=== PATIENT | female | born 1985 | race African-American/Black ===

== ENCOUNTER 2017-05-13 09:29 | Emergency (ER) | payer MEDICAID ==
[2017-05-13 09:37] VITALS: BP 113/73
[2017-05-13 10:25] LABS: APPEARANCE,URINE CLEAR; BILIRUBIN,URINE NEGATIVE (NEGATIVE); GLUCOSE, URINE NEGATIVE (NEGATIVE); KETONES,URINE NEGATIVE (NEGATIVE); LEUKOCYTE ESTERASE,URINE NEGATIVE (NEGATIVE); NITRITE,URINE NEGATIVE (NEGATIVE); PROTEIN,URINE NEGATIVE (NEGATIVE); URINE SPECIFIC GRAVITY 1.031; UROBILINOGEN,URINE NEGATIVE mg/dL (<2.0)
--- NOTE | 2017-05-13 10:45 | ER Document Report ---
HPI - HPI Patient complains to provider of: dysuria Onset: Yesterday Onset/Duration: Gradual Quality of pain: Burning Severity: Mild Pain Level: 1 Context: Patient states that she has had increased urination since yesterday and reports burning with urination. Denies fever, does have some nausea but patient is about 7 weeks . No vomiting. No abdominal pain. Associated Symptoms: None Exacerbated by: Denies Relieved by: Denies Similar symptoms previously: Yes Recently seen / treated by doctor: No - ROS ROS below otherwise negative: Yes Systems Reviewed and Negative: Yes All other systems reviewed and negative - CONSTITUTIONAL Constitutional: DENIES: Fever - EENT EENT: DENIES: Congestion - NEURO Neurology: DENIES: Headache - CARDIOVASCULAR Cardiovascular: DENIES: Chest pain - RESPIRATORY Respiratory: DENIES: Trouble Breathing - GASTROINTESTINAL Gastrointestinal: REPORTS: Nausea. DENIES: Abdominal Pain - URINARY Urinary: REPORTS: Dysuria - REPRODUCTIVE Reproductive: REPORTS: : - MUSCULOSKELETAL Musculoskeletal: DENIES: Extremity pain - DERM Skin Color: Normal Skin Problems: None Past Medical History - General Information source: Patient - Social History Smoking Status: Never Smoker Frequency of alcohol use: None Drug Abuse: None Lives with: Spouse/Significant other Family History: Reviewed & Not Pertinent Patient has suicidal ideation: No Patient has homicidal ideation: No - Medical History Medical History: Negative Past Surgical History: Reports: Hx Oral Surgery - wisdom teeth extraction - Immunizations Hx Diphtheria, Pertussis, Tetanus Vaccination: Yes - unknown Vertical Provider Document - CONSTITUTIONAL Agree With Documented VS: Yes Exam Limitations: No Limitations General Appearance: WD/WN, No Apparent Distress - INFECTION CONTROL TRAVEL OUTSIDE OF THE [place] IN LAST 30 DAYS: No - HEENT HEENT: Atraumatic, Normocephalic - RESPIRATORY Respiratory: Breath Sounds Normal, No Respiratory Distress O2 Sat by Pulse Oximetry: 98 - CARDIOVASCULAR Cardiovascular: Regular Rate, Regular Rhythm - GI/ABDOMEN Gastrointestinal: Abdomen Soft, Normal Bowel Sounds Notes: mild suprapubic tenderness - BACK Back: negative: CVA Tenderness-Right, CVA Tenderness-Left - MUSCULOSKELETAL/EXTREMETIES Musculoskeletal/Extremeties: MAEW - NEURO Level of Consciousness: Awake, Alert, Appropriate - DERM Integumentary: Warm, Dry Course - Vital Signs Vital signs: Temp Pulse Resp BP Pulse Ox 98.4 F 86 14 113/73 98 05/13/17 09:35 05/13/17 09:35 05/13/17 09:35 05/13/17 09:35 05/13/17 09:35 Discharge - Discharge Clinical Impression: Dysuria Condition: Good Disposition: HOME, SELF-CARE Additional Instructions: Push fluids Antibiotic as prescribed for 3 days pending urine culture results Follow-up with your STEWARD RACETRACK as scheduled Return as needed Prescriptions: Nitrofurantoin Monohyd/M-Cryst [Macrobid 100 mg Capsule] 100 mg PO BID #6 capsule Forms: Return to Work
== END 2017-05-13 10:51 | disposition home or self-care (01) ==
LOC: ER 09:29
DX: R30.0 Dysuria (principal); Z3A.01 Less than 8 weeks gestation of pregnancy; R11.0 Nausea
CPT/HCPCS: 81001; 87086; 99283

== ENCOUNTER 2017-10-17 20:31 | Emergency (ER) | payer MEDICAID ==
--- NOTE | 2017-10-17 21:26 | ER Document Report ---
ED General - General Chief Complaint: Chest Tightness Stated Complaint: CHEST TIGHTNESS Time Seen by Provider: 10/17/17 21:09 Notes: Patient is a 32-year-old female currently 30 weeks , no prior past medical history who presents with 24 hours of intermittent chest tightness and shortness of breath as well as a headache. Patient reports that since waking up this morning she is intermittently felt a heaviness in her chest with some mild difficulty catching her breath. She denies any pleuritic pain, exertional dyspnea, orthopnea, or hemoptysis. No unilateral leg swelling. She denies any history of prior DVT or pulmonary embolus. She denies any symptoms at time of my assessment. She has not seen her primary care doctor or ACCESSORIES REPAIRER regarding today's concerns. Nothing improves or worsens her symptoms. TRAVEL OUTSIDE OF THE [place] IN LAST 30 DAYS: No - Related Data Allergies/Adverse Reactions: codeine [Codeine] Adverse Reaction (Intermediate, Verified 05/13/17 09:34) Hallucinations hydrocodone [Hydrocodone] Adverse Reaction (Verified 05/13/17 09:34) Hallucinations Past Medical History - General Information source: Patient - Social History Smoking Status: Never Smoker Frequency of alcohol use: None Drug Abuse: None Lives with: Family Family History: Reviewed & Not Pertinent Renal/ Medical History: Denies: Hx Peritoneal Dialysis Past Surgical History: Reports: Hx Oral Surgery - wisdom teeth extraction - Immunizations Hx Diphtheria, Pertussis, Tetanus Vaccination: Yes - unknown Review of Systems - Review of Systems Notes: Constitutional: Negative for fever. HENT: Negative for sore throat. Eyes: Negative for visual changes. Cardiovascular: Positive for chest pain. Respiratory: Positive for shortness of breath. Gastrointestinal: Negative for abdominal pain, vomiting or diarrhea. Genitourinary: Negative for dysuria. Musculoskeletal: Negative for back pain. Skin: Negative for rash. Neurological: Negative for headaches, weakness or numbness. 10 point ROS negative except as marked above and in HPI. Physical Exam - Vital signs Vitals: Pulse Resp BP Pulse Ox 77 18 122/78 98 10/18/17 00:20 10/18/17 00:20 10/18/17 00:20 10/18/17 00:20 Interpretation: Normal Notes: PHYSICAL EXAMINATION: GENERAL: Well-appearing, well-nourished and in no acute distress. HEAD: Atraumatic, normocephalic. EYES: Pupils equal round and reactive to light, extraocular movements intact, sclera anicteric, conjunctiva are normal. ENT: nares patent, oropharynx clear without exudates. Moist mucous membranes. NECK: Normal range of motion, supple without lymphadenopathy LUNGS: Breath sounds clear to auscultation bilaterally and equal. No wheezes rales or rhonchi. HEART: Regular rate and rhythm without murmurs ABDOMEN: Gravid uterus. Soft, nontender, normoactive bowel sounds. No guarding , no rebound. No masses appreciated. EXTREMITIES: Normal range of motion, no pitting or edema. No cyanosis. NEUROLOGICAL: No focal neurological deficits. Moves all extremities spontaneously and on command. PSYCH: Normal mood, normal affect. SKIN: Warm, Dry, normal turgor, no rashes or lesions noted. Course - Re-evaluation Re-evalutation: 10/17/17 22:29 Patient presents with chest heaviness and some mild shortness of breath that is been present for the past 24 hours in the setting of a third trimester . Patient is well in appearance, vitals within normal limits without tachycardia, tachypnea, or hypoxemia. She denies any pleuritic pain, exertional dyspnea, and denies any significant symptoms at time of assessment. I have discussed with the patient that in the setting of a third trimester although her symptoms are minimally suggestive of a pulmonary embolus cannot definitively exclude this diagnosis without a CT of the chest. I have also discussed that given that she is there are associated risks of a high level of radiation exposure during the CT scan to her fetus as well as to the patient herself. We have had an extensive risks and benefits conversation about proceeding with a CT of the chest versus discharge home with close follow- up and strict return precautions. This conversation was held in front of family members. The patient has elected to defer a CT scan of the chest at this time based on the concerns of possible exposure to radiation as well as to herself. Chest x-ray without evidence of pneumothorax or infiltrate. EKG without ST changes. Troponin is negative. At this time will discharge with return precautions and follow-up recommendations. Verbal discharge instructions given a the bedside and opportunity for questions given. Medication warnings reviewed. Patient is in agreement with this plan and has verbalized understanding of return precautions and the need for primary care follow-up in the next 24-72 hours. - Vital Signs Vital signs: Temp Pulse Resp BP Pulse Ox 77 18 122/78 98 10/18/17 00:20 10/18/17 00:20 10/18/17 00:20 10/18/17 00:20 - Laboratory Result Diagrams: 10/17/17 22:25 10/17/17 22:25 Laboratory results interpreted by me: 10/17/17 10/17/17 22:25 22:25 Hgb 10.6 L Hct 30.6 L MCV 79 L Sodium 136.8 L Creatinine 0.50 L - Diagnostic Test Radiology reviewed: Image reviewed, Reports reviewed Radiology results interpreted by me: 10/18/17 00:02 Chest x-ray: No acute infiltrate or pneumothorax - EKG Interpretation by Me Additional EKG results interpreted by me: 10/18/17 00:03 Normal sinus rhythm. Rate 82. No ST elevations or depressions. QTC is 439. Discharge - Discharge Clinical Impression: Chest discomfort, Shortness of breath Condition: Good Disposition: HOME, SELF-CARE Additional Instructions: Please return if you develop increasing shortness of breath, worsening pain, pass out, or have any other symptoms that are worrisome to you. Begin taking famotidine also known as Pepcid 20 mg twice daily to see if this improves your symptoms. Referrals: ELGIN CRUZ MD [Primary Care Provider] - Follow up as needed
--- NOTE | 2017-10-17 22:43 | RADIOLOGY REPORT (SQ) ---
EXAM DESCRIPTION: CHEST SINGLE VIEW COMPLETED DATE/TIME: 10/17/2017 10:09 pm REASON FOR STUDY: sob COMPARISON: 07/03/2012 EXAM PARAMETERS: NUMBER OF VIEWS: One view. TECHNIQUE: Single frontal radiographic view of the chest acquired. RADIATION DOSE: NA LIMITATIONS: None. FINDINGS: LUNGS AND PLEURA: No acute opacities, masses or pneumothorax. No pleural effusion. MEDIASTINUM AND HILAR STRUCTURES: No masses. Contour normal. HEART AND VASCULAR STRUCTURES: Heart normal in size. Normal vasculature. BONES: No acute findings. HARDWARE: None in the chest. OTHER: No other significant finding. IMPRESSION: NO ACUTE RADIOGRAPHIC FINDING IN THE CHEST. TECHNICAL DOCUMENTATION: JOB ID: [id number] [place]-72 2010 [employer]- All Rights Reserved
[2017-10-17 22:46] LABS: ABSOLUTE BASOPHILS # (AUTO) 0.1 10^3/uL (0.0-0.2); ABSOLUTE EOSINOPHILS # (AUTO) 0.2 10^3/uL (0.0-0.6); ABSOLUTE LYMPHOCYTES (AUTO) 2.4 10^3/uL (0.5-4.7); ABSOLUTE MONOCYTES (AUTO) 0.7 10^3/uL (0.1-1.4); ABSOLUTE NEUT (AUTO) 5.3 10^3/uL (1.7-8.2); BASOPHILS % (AUTO) 0.6 % (0-2); EOSINOPHILS % (AUTO) 1.8 % (0-6); HEMATOCRIT 30.6 % (36.0-47.0); HEMOGLOBIN 10.6 g/dL (12.0-15.5); LYMPHOCYTES % (AUTO) 27.9 % (13-45); MEAN CORPUSCULAR HEMOGLOBIN 27.3 pg (27.0-33.4); MEAN CORPUSCULAR HGB CONC 34.7 g/dL (32.0-36.0); MEAN CORPUSCULAR VOLUME 79 fl (80-97); MONOCYTES % (AUTO) 8.4 % (3-13); PLATELET COUNT 201 10^3/uL (150-450); RED BLOOD COUNT 3.89 10^6/uL (3.72-5.28); RED CELL DISTRIBUTION WIDTH 13.9 % (11.5-14.0); SEGMENTED NEUTROPHILS % (AUTO) 61.3 % (42-78); TOTAL CELLS COUNTED % (AUTO) 100 %; WHITE BLOOD COUNT 8.7 10^3/uL (4.0-10.5)
[2017-10-17 23:02] LABS: ANION GAP 9 (5-19); BLOOD UREA NITROGEN 11 mg/dL (7-20); CARBON DIOXIDE 22 mmol/L (22-30); CHLORIDE 106 mmol/L (98-107); GLUCOSE 86 mg/dL (75-110); POTASSIUM 4.1 mmol/L (3.6-5.0); SODIUM 136.8 mmol/L (137-145)
[2017-10-18] MEDS ORDERED: FAMOTIDINE 20 MG TABLET PO ONE (00:02)
[2017-10-18 00:21] VITALS: BP 122/78
--- NOTE | 2017-10-19 11:06 | EKG REPORT ---
SEVERITY:- NORMAL ECG - SINUS RHYTHM : Confirmed by: Rosalee Kim MD 19-Oct-2017 11:06:10
== END 2017-10-18 00:21 | disposition home or self-care (01) ==
LOC: ER 20:31
DX: O26.893 Other specified pregnancy related conditions, third trimester (principal); R07.89 Other chest pain; R06.02 Shortness of breath; R51 Headache; Z3A.30 30 weeks gestation of pregnancy
CPT/HCPCS: 93005; 99285; 36415; 85025; 80048; 84484; 71010; 93010; J3490

== ENCOUNTER 2017-12-10 13:02 | Outpatient (CLI) | payer MEDICAID ==
[2017-12-10 13:46] LABS: AMNISURE (ROM) NEGATIVE (NEGATIVE)
[2017-12-10 13:50] LABS: APPEARANCE,URINE CLOUDY; BILIRUBIN,URINE NEGATIVE (NEGATIVE); COLOR,URINE AMBER; GLUCOSE, URINE NEGATIVE (NEGATIVE); KETONES,URINE NEGATIVE (NEGATIVE); LEUKOCYTE ESTERASE,URINE TRACE (NEGATIVE); NITRITE,URINE NEGATIVE (NEGATIVE); PROTEIN,URINE 30 mg/dL (NEGATIVE); URINE SPECIFIC GRAVITY 1.035
[2017-12-10 14:14] LABS: URINE AMPHETAMINES SCREEN NEGATIVE; URINE BARBITURATES SCREEN NEGATIVE; URINE BENZODIAZEPINES SCREEN NEGATIVE; URINE COCAINE SCREEN NEGATIVE; URINE MARIJUANA (THC) SCREEN NEGATIVE; URINE METHADONE SCREEN NEGATIVE; URINE PHENCYCLIDINE SCREEN NEGATIVE
--- NOTE | 2017-12-10 14:38 | Non Stress Test Report ---
Non Stress Test Datetime Report Generated by CPN: 12/10/2017 14:38 DEMOGRAPHIC EGA NST: 37.4 INDICATION Indication for Study: Other Indication for Study (NST) Other: LABOR CHECK MONITORING Monitor Explained: Monitor Explained; Test Explained; Patient Verbalized Understanding Time on Monitor: 12/10/2017 13:26 NST INTERVENTIONS NST Interventions: PO Hydration; Reposition Patient Physician Notified NST: A. Samuels, CNM BABY A: [id number] BABY A Movement : Present Contraction Frequency : Irregular FHR Baseline : 145 Accelerations : 15X15 Decelerations : None Variability : Moderate 6-25bpm NST Review: Meets Criteria for Reactive NST NST Review and Verified By : Yassine Armenta RN NST Results: Reactive NST REPORT Report Trigger: Send Report
== END 2017-12-10 14:28 | disposition home or self-care (01) ==
LOC: LC 13:02
PROVIDERS: ATTEND Obstetrics & Gynecology
PROC: 4A1HXCZ Monitoring of Products of Conception, Cardiac Rate, External Approach (ICD-10-PCS; principal; 2017-12-10)
DX: Z34.93 Encounter for supervision of normal pregnancy, unspecified, third trimester (principal)
CPT/HCPCS: 59025; 80307; 81005; 84112

== ENCOUNTER 2018-01-07 13:47 | Outpatient (CLI) | payer MEDICAID ==
[2018-01-07 14:22] LABS: APPEARANCE,URINE CLOUDY; BILIRUBIN,URINE NEGATIVE (NEGATIVE); COLOR,URINE YELLOW; GLUCOSE, URINE NEGATIVE (NEGATIVE); KETONES,URINE 20 mg/dL (NEGATIVE); LEUKOCYTE ESTERASE,URINE TRACE (NEGATIVE); NITRITE,URINE NEGATIVE (NEGATIVE); PROTEIN,URINE 30 mg/dL (NEGATIVE); URINE SPECIFIC GRAVITY 1.019; UROBILINOGEN,URINE NEGATIVE mg/dL (<2.0)
[2018-01-07 14:29] LABS: AMNISURE (ROM) NEGATIVE (NEGATIVE)
--- NOTE | 2018-01-07 14:51 | Non Stress Test Report ---
Non Stress Test Datetime Report Generated by CPN: 01/07/2018 14:51 DEMOGRAPHIC EGA NST: 41.4 INDICATION Indication for Study: Ordered by Provider MONITORING Monitor Explained: Monitor Explained; Test Explained; Patient Verbalized Understanding Time on Monitor: 01/07/2018 13:59 Time off Monitor: 01/07/2018 14:46 NST Duration: 47 NST INTERVENTIONS NST Interventions: PO Hydration Physician Notified NST: PMyah Cowart, CNM BABY A: [id number] BABY A Movement : Present Contraction Frequency : Irregular FHR Baseline : 130 Accelerations : 15X15 Decelerations : None Variability : Moderate 6-25bpm NST Review: Meets Criteria for Reactive NST NST Review and Verified By : BIBI Roque Results: Reactive NST REPORT Report Trigger: Send Report
[2018-01-07 14:56] LABS: URINE AMPHETAMINES SCREEN NEGATIVE; URINE BARBITURATES SCREEN NEGATIVE; URINE BENZODIAZEPINES SCREEN NEGATIVE; URINE COCAINE SCREEN NEGATIVE; URINE MARIJUANA (THC) SCREEN NEGATIVE; URINE METHADONE SCREEN NEGATIVE; URINE PHENCYCLIDINE SCREEN NEGATIVE
== END 2018-01-07 13:58 | disposition home or self-care (01) ==
LOC: LC 13:47
PROVIDERS: ATTEND Obstetrics & Gynecology Gynecology
PROC: 4A1HXCZ Monitoring of Products of Conception, Cardiac Rate, External Approach (ICD-10-PCS; principal; 2018-01-07)
DX: O47.1 False labor at or after 37 completed weeks of gestation (principal); Z3A.41 41 weeks gestation of pregnancy
CPT/HCPCS: 59025; 80307; 81005; 84112

== ENCOUNTER 2018-01-08 12:45 | Inpatient (IN) | payer MEDICAID ==
[2018-01-08 13:18] LABS: APPEARANCE,URINE SLIGHTLY-CLOUDY; BILIRUBIN,URINE NEGATIVE (NEGATIVE); COLOR,URINE YELLOW; GLUCOSE, URINE NEGATIVE (NEGATIVE); KETONES,URINE NEGATIVE (NEGATIVE); LEUKOCYTE ESTERASE,URINE MODERATE (NEGATIVE); NITRITE,URINE NEGATIVE (NEGATIVE); PROTEIN,URINE NEGATIVE (NEGATIVE); URINE SPECIFIC GRAVITY 1.015; UROBILINOGEN,URINE NEGATIVE mg/dL (<2.0)
[2018-01-08 13:36] LABS: URINE AMPHETAMINES SCREEN NEGATIVE; URINE BARBITURATES SCREEN NEGATIVE; URINE BENZODIAZEPINES SCREEN NEGATIVE; URINE COCAINE SCREEN NEGATIVE; URINE MARIJUANA (THC) SCREEN NEGATIVE; URINE METHADONE SCREEN NEGATIVE; URINE PHENCYCLIDINE SCREEN NEGATIVE
[2018-01-08] MEDS ORDERED: OXYTOCIN/NORMAL SALINE 20 UNIT/1,000 ML RTUINJ IV PRN ×2 (15:03→21:56)
[2018-01-08] MEDS ORDERED: RINGERS SOLUTION,LACTATED 300 ML IV ONE (15:03)
[2018-01-08] MEDS ORDERED: RINGERS SOLUTION,LACTATED 1,000 ML IV PRN (15:03)
--- NOTE | 2018-01-08 15:36 | Admission Physical ---
Datetime Report Generated by CPN: 01/08/2018 15:35 CURRENT ADMISSION Chief Complaint: Sent from OB Office for Evaluation and Treatment - Please Specify Indication for Induction: Post Dates Admit Impression : Term, Intrauterine Admit Plan: Initiate Labor Induction Protocol ALLERGIES Medication Allergies: Yes Medication Allergies: codeine/MO/Hallucinations (01/07/2018); hydrocodone/Hallucinations (01/07/2018) Latex: No Latex Allergies OBSTETRICAL HISTORY EDC: 12/27/2017 00:00 : 2 Para: 1 Term: 1 : 0 SAB: 0 IAB: 0 Ectopic: 0 Livin Cesareans: 0 VBACs: 0 Multiple Births: 0 Gestational Diabetes: No Rh Sensitization: No Incompetent Cervix: No BRODERICK: No Infertility: No ART Treatment: No Uterine Anomaly: No IUGR: No Hx Previous C/S: No Macrosomia: No Hx Loss/Stillborn: No PIH: No Hx : No Placenta Previa/Abruption: No Depression/PP Depression: No PTL/PROM: No Post Hemorrhage: No Current Procedures: Ultrasound; NST Obstetrical History Comments: G1- Baby girl @ 40 weeks G2- Current SEE RECORDS Alcohol: No Marijuana : No Cocaine: No Other Illicit Drugs: No Cigarettes: Never Smoker. [id number] MEDICAL HISTORY Diabetes: No Blood Transfusion: No Pulmonary Disease (Asthma, TB): No Breast Disease: No Hypertension: No Teacher Early Childhood Development Surgery: No Heart Disease: No Hosp/Surgery: Yes Autoimmune Disorder: No Anesthetic Complications: No Kidney Disease: No Abnormal Pap Smear: No Neuro/Epilepsy: No Psychiatric Disorders: No Other Medical Diseases: No Hepatitis/Liver Disease: No Significant Family History: No Varicosities/Phlebitis: No Trauma/Violence : No Thyroid Dysfunction: No Medical History Comments: Childbirth, wisdom teeth 2002, hosp 2013 for adnoid infection INFECTIOUS HISTORY Gonorrhea: No Genital Herpes: No Chlamydia: No Tuberculosis: No Syphilis: No Hepatitis: No HIV/AIDS Exposure: No Rash or Viral Illness: No HPV: No PHYSICAL EXAM General: Normal HEENT: Normal Neurologic: Normal Thyroid: Deferred Heart: Normal Lungs: Normal Breast: Deferred Back: Deferred Abdomen: Normal Genitourinary Exam: Deferred Extremities: Normal DTRs: Deferred Pelvic Type: Not Done Physical Exam Comments: pelvis proven to 7#4.9oz Vital Signs: Reviewed; Within Normal Limits VAGINAL EXAM Dilatation: 3 Effacement: 60 Station: -2 Contraction Comments: irreg MEMBRANES Membranes: Intact FETUS A EGA: 41.5 Monitoring: External US FHR- Baseline: 125 Variability: Moderate 6-25bpm Accelerations: 15X15 Decelerations: None FHR Category: Category I Estimated Weight (gm): 3400 Presentation: Vertex Admit Comment: at 41w5d by LMP c/w 11w sono. admitted for IOL for postdates . Plan is pitocin IOL, anticipate . PLANS FOR LABOR AND DELIVERY Labor and Delivery: None Pain Management: None Feeding Preference: Breast Benefit of Breast Feed Discussed: Yes Circumcision: N/A INFORMED CONSENT Assignment: Cari Gonzalez MD Signature: with User ID: [email or web address] : with User ID: [email or web address]
[2018-01-08] MEDS ORDERED: OXYTOCIN/NORMAL SALINE 20 UNIT/1,000 ML RTUINJ ONE (15:41)
[2018-01-08 16:02] LABS: ABSOLUTE BASOPHILS # (AUTO) 0.1 10^3/uL (0.0-0.2); ABSOLUTE EOSINOPHILS # (AUTO) 0.1 10^3/uL (0.0-0.6); ABSOLUTE MONOCYTES (AUTO) 0.9 10^3/uL (0.1-1.4); ABSOLUTE NEUT (AUTO) 8.6 10^3/uL (1.7-8.2); BASOPHILS % (AUTO) 0.6 % (0-2); EOSINOPHILS % (AUTO) 0.5 % (0-6); HEMATOCRIT 37.8 % (36.0-47.0); HEMOGLOBIN 12.6 g/dL (12.0-15.5); LYMPHOCYTES % (AUTO) 17.1 % (13-45); MEAN CORPUSCULAR HEMOGLOBIN 26.5 pg (27.0-33.4); MEAN CORPUSCULAR HGB CONC 33.4 g/dL (32.0-36.0); MEAN CORPUSCULAR VOLUME 79 fl (80-97); MONOCYTES % (AUTO) 7.5 % (3-13); PLATELET COUNT 161 10^3/uL (150-450); RED BLOOD COUNT 4.77 10^6/uL (3.72-5.28); RED CELL DISTRIBUTION WIDTH 14.2 % (11.5-14.0); SEGMENTED NEUTROPHILS % (AUTO) 74.3 % (42-78); TOTAL CELLS COUNTED % (AUTO) 100 %; WHITE BLOOD COUNT 11.6 10^3/uL (4.0-10.5)
--- NOTE | 2018-01-08 16:39 | L&D Progress Notes ---
PROGRESS NOTES Datetime Report Generated by CPN: 01/08/2018 16:39 PROGRESS NOTE Impression: Normal Progression of Labor Procedures: Sterile Vag Exam Plan: Continue Present Management; Induction; Cervical Ripening Informed Consent Obtained: Vaginal Delivery; Risks, Benefits and Alternatives Discussed Vital Signs : Reviewed Comment: cvx 2-3cm. Cooks catheter due to thickened cvx. Pitocin initiated for induction. VAGINAL EXAM Dilatation: 3 Effacement: 60 Station: -2 Contractions: irreg MEMBRANES Membranes: Intact FETUS A FHR - Baseline: 125 Variability: Moderate 6-25bpm Accelerations: 15X15 Decelerations: None FHR Category: Category I : 41+5 Estimated Weight (gm): 3400 Presentation: Vertex SIGNATURE SIGNATURE: [id number] SIGNATURE: ,[id number];,[id number] SIGNATURE: [id number] SIGNATURE: ,[id number] Signature: with User ID: [email or web address]
--- NOTE | 2018-01-08 18:07 | L&D Progress Notes ---
PROGRESS NOTES Datetime Report Generated by CPN: 01/08/2018 18:06 PROGRESS NOTE Impression: Normal Progression of Labor Procedures: Artificial ROM; Sterile Vag Exam Plan: Continue Present Management; Induction; Cervical Ripening Informed Consent Obtained: Vaginal Delivery; Induction of Labor; Risks, Benefits and Alternatives Discussed Comment: Pt with increased pain with contractions. Cooks in vagina. Cvx /-1. AROM attempted - scant fluid noted. Anticpate VAGINAL EXAM Dilatation: 7 Effacement: 80 Station: -1 Contractions: q 2 FETUS A FHR - Baseline: 140 Monitoring: External US Variability: Moderate 6-25bpm Accelerations: 15X15 Decelerations: None FHR Category: Category I FETUS C SIGNATURE: 13,[id number];14,[id number];10,[id number] Signature: with User ID: [email or web address]
[2018-01-08] MEDS ORDERED: ONDANSETRON HCL INJ/PF 4 MG/2 ML SDV IV PRN (18:08)
[2018-01-08] MEDS ORDERED: ONDANSETRON HCL INJ/PF 4 MG/2 ML SDV ONE (18:11)
[2018-01-08] MEDS ORDERED: MISOPROSTOL 0.2 MG TABLET ONE (18:19)
[2018-01-08] MEDS ORDERED: LIDOCAINE 1% INJ-PF (10 MG/ML) 30 ML SDV ONE (18:20)
[2018-01-08] MEDS ORDERED: FENTANYL CITRATE INJ/PF 100 MCG/2 ML AMPUL IV ONE (18:44)
[2018-01-08] MEDS ORDERED: FENTANYL CITRATE INJ/PF 100 MCG/2 ML AMPUL ONE (18:45)
[2018-01-08] MEDS ORDERED: MEASLES,MUMPS&RUBELLA VACC/PF 0.5 ML VIAL SUBCUT PRN (21:56)
[2018-01-08] MEDS ORDERED: NA PHOS,M-B/NA PHOS,DI-BA (ADULT) 133 ML ENEMA PR PRN (21:56)
[2018-01-08] MEDS ORDERED: ACETAMINOPHEN 325 MG TABLET PO PRN (21:56)
[2018-01-08] MEDS ORDERED: DIPHENHYDRAMINE HCL 25 MG CAPSULE PO PRN (21:56)
[2018-01-08] MEDS ORDERED: PROMETHAZINE HCL 25 MG TABLET PO PRN (21:56)
[2018-01-08] MEDS ORDERED: DIBUCAINE 1% OINTMENT 28 GM TP PRN (21:56)
[2018-01-08] MEDS ORDERED: PROMETHAZINE HCL 25 MG SUPP.RECT PR PRN (21:56)
[2018-01-08] MEDS ORDERED: ZOLPIDEM TARTRATE 5 MG TABLET PO PRN (21:56)
[2018-01-08] MEDS ORDERED: GLYCERIN/WITCH HAZEL LEAF 1 EACH MED..PAD TP PRN (21:56)
[2018-01-08] MEDS ORDERED: PROMETHAZINE HCL INJ 25 MG/1 ML VIAL IV PRN (21:56)
[2018-01-08] MEDS ORDERED: MAGNESIUM HYDROXIDE SUSP 30 ML UDCUP PO PRN (21:56)
[2018-01-08] MEDS ORDERED: PSEUDOEPHEDRINE HCL 30 MG TABLET PO PRN (21:56)
[2018-01-08] MEDS ORDERED: BENZOCAINE/MENTHOL AEROSOL SPRAY 56 ML TOP PRN (21:56)
[2018-01-08] MEDS ORDERED: DIPH/PERTUSS(ACELL)/TETANUS VAC/PF 0.5 ML SYR (>=10YO) IM PRN (21:56)
[2018-01-09] MEDS: IBUPROFEN 800 MG TABLET PO SCH ×4 (00:38→21:36)
[2018-01-09] MEDS: FAMOTIDINE 20 MG TABLET PO SCH ×3 (02:56→21:38)
[2018-01-09 07:37] LABS: HEMATOCRIT 35.9 % (36.0-47.0); HEMOGLOBIN 12.3 g/dL (12.0-15.5); MEAN CORPUSCULAR HEMOGLOBIN 26.8 pg (27.0-33.4); MEAN CORPUSCULAR HGB CONC 34.1 g/dL (32.0-36.0); MEAN CORPUSCULAR VOLUME 79 fl (80-97); PLATELET COUNT 154 10^3/uL (150-450); RED BLOOD COUNT 4.57 10^6/uL (3.72-5.28); RED CELL DISTRIBUTION WIDTH 14.2 % (11.5-14.0); WHITE BLOOD COUNT 21.5 10^3/uL (4.0-10.5)
[2018-01-09] MEDS: FERROUS SULFATE 325 MG TABLET PO SCH ×2 (11:11→17:27)
[2018-01-09] MEDS: SENNOSIDES/DOCUSATE 8.6-50 MG 1 EACH TABLET PO SCH (11:12)
[2018-01-09] MEDS: PRENATAL VITAMIN W DHA CAPSULE PO SCH (11:12)
[2018-01-09] MEDS: DOCUSATE SODIUM 100 MG CAPSULE PO SCH ×2 (11:13→17:27)
--- NOTE | 2018-01-09 13:20 | PDOC PROGRESS REPORT ---
Subjective-OB Progress Note for:: 01/09/18 Subjective: no complaints Physical Exam (OB) Vital Signs: Temp Pulse Resp BP Pulse Ox 98.3 F 76 18 103/69 100 01/09/18 07:47 01/09/18 07:47 01/09/18 07:47 01/09/18 07:47 01/09/18 07:47 Intake & Output 01/08/18 01/09/18 01/10/18 06:59 06:59 06:59 Weight 69.4 kg - PIH/Pre-Eclampsia DTR's: 2 + Clonus: Negative Headache: Absent Epigastric Pain: No Visual Changes: No - Lochia Lochia Amount: Scant < 10 ml Lochia Color: Rubra/Red - Abdomen Description: Soft Hernia Present: No Bowel Sounds: Normoactive Flatus Presence: Present Fundal Description: Firm, Midline Fundal Height: u/u - u/2 - Respiratory Breath sounds: Clear - Extremities Calf: Normal Objective-Diagnostic Laboratory: 01/09/18 07:17 01/08/18 01/08/18 01/08/18 12:55 15:40 15:40 WBC 11.6 H RBC 4.77 Hgb 12.6 Hct 37.8 MCV 79 L MCH 26.5 L MCHC 33.4 RDW 14.2 H Plt Count 161 Seg Neutrophils % 74.3 Lymphocytes % 17.1 Monocytes % 7.5 Eosinophils % 0.5 Basophils % 0.6 Absolute Neutrophils 8.6 H Absolute Lymphocytes 2.0 Absolute Monocytes 0.9 Absolute Eosinophils 0.1 Absolute Basophils 0.1 Urine Color YELLOW Urine Appearance SLIGHTLY-CLOUDY Urine pH 7.0 Ur Specific [place] 1.015 Urine Protein NEGATIVE Urine Glucose (UA) NEGATIVE Urine Ketones NEGATIVE Urine Blood MODERATE H Urine Nitrite NEGATIVE Ur Leukocyte Esterase MODERATE H Urine WBC (Auto) 3 Urine RBC (Auto) 0 Blood Type O POSITIVE Antibody Screen NEGATIVE 01/09/18 07:17 WBC 21.5 H RBC 4.57 Hgb 12.3 Hct 35.9 L MCV 79 L MCH 26.8 L MCHC 34.1 RDW 14.2 H Plt Count 154 Seg Neutrophils % Lymphocytes % Monocytes % Eosinophils % Basophils % Absolute Neutrophils Absolute Lymphocytes Absolute Monocytes Absolute Eosinophils Absolute Basophils Urine Color Urine Appearance Urine pH Ur Specific [place] Urine Protein Urine Glucose (UA) Urine Ketones Urine Blood Urine Nitrite Ur Leukocyte Esterase Urine WBC (Auto) Urine RBC (Auto) Blood Type Antibody Screen
[2018-01-10] MEDS: IBUPROFEN 800 MG TABLET PO SCH (05:13)
[2018-01-10 08:42] VITALS: BP 101/58
--- NOTE | 2018-01-10 10:16 | PDOC DISCHARGE SUMMARY ---
Final Diagnosis Discharge Date: 01/10/18 - Final Diagnosis (1) Vaginal delivery Is this a current diagnosis for this admission?: Yes Discharge Data - Discharge Medication Prescriptions: Docusate Sodium [Colace 100 mg Capsule] 100 mg PO BID #60 capsule Ibuprofen [Motrin 800 mg Tablet] 800 mg PO Q8 #60 tablet Home Medications: Vit/Iron Fum/Folic AC [ Tablet] 1 each PO DAILY 12/10/17 Docusate Sodium [Colace 100 mg Capsule] 100 mg PO BID #60 capsule 01/10/18 Ibuprofen [Motrin 800 mg Tablet] 800 mg PO Q8 #60 tablet 01/10/18 Gestational Age: 41 Reason(s) for Admission: Induction of Labor Procedures: NST Intrapartum Procedure(s): Spontaneous Vaginal Delivery - [place] Data Baby 1 Female Home with Mother: Yes Complications: No - Diagnosis Test Laboratory: Temp Pulse Resp BP Pulse Ox 98.2 F 85 17 101/58 L 98 01/10/18 07:49 01/10/18 07:49 01/10/18 07:49 01/10/18 07:49 01/10/18 07:49 01/08/18 01/08/18 01/09/18 12:55 15:40 07:17 RBC 4.77 4.57 Hgb 12.6 12.3 Hct 37.8 35.9 L Urine Opiates Screen NEGATIVE - Discharge information/Instructions Discharge Activity: Activity As Tolerated, Pelvic Rest, No tub bath Discharge Diet: Regular Disposition: HOME, SELF-CARE Follow up with: [facility] in: 4, Weeks
[2018-01-10] MEDS: PRENATAL VITAMIN W DHA CAPSULE PO SCH (10:17)
[2018-01-10] MEDS: SENNOSIDES/DOCUSATE 8.6-50 MG 1 EACH TABLET PO SCH (10:18)
[2018-01-10] MEDS: FERROUS SULFATE 325 MG TABLET PO SCH (10:18)
[2018-01-10] MEDS: DOCUSATE SODIUM 100 MG CAPSULE PO SCH (10:19)
--- NOTE | 2018-01-15 12:19 | Delivery Summary ---
Del Sum A-C Datetime Report Generated by CPN: 01/15/2018 12:18 DELIVERY PERSONNEL DELIVERY PERSONNEL: [id number] Delivery Doctor:: Becky Brooke CNM Nurse Brigadier Certified:: Becky Brooke CNM Labor and Delivery Nurse:: Pilar Ramirez RNtranscribing machine mechanic Nurse:: BIBI Cuello/SELF SEALING FUEL TANK REPAIRER: Sarahi Panda CNA MATERNAL INFORMATION Delivery Anesthesia: None Medications After Delivery: Pitocin Bolus-Please Comment Estimated Blood Loss (ml): 150 Maternal Complications: None Provider Comments: Pt pushed with ctx, head, shoulders, and body delivered without difficulty. with spontaneous cry and respirations to maternal abodmen, cord clamped X2 after 2 min delay, cut free, kept skin to skin, placenta delivered with gentle traction via gallego mechansim, appears intact, 3 VC. Vagina and perineum inspected no lacerations noted, hemostasis acheived with external fundal massage and IV pitocin, mother and infant in stable condition, routine pp care. LABOR SUMMARY EDC: 12/27/2017 00:00 No. Babies in Womb: 1 Attempted: Yes Labor Anesthesia: None LABOR INFORMATION Reason for Induction: Post Dates Onset of Labor: 01/08/2018 14:38 Complete Dilatation: 01/08/2018 21:34 Oxytocin: Induction Group B Beta Strep: 1 NO GROUP B STREPTOCOCCUS RECOVERED Group B Beta Strep: Negative Antibiotics # of Doses: 0 Steroids Given: None Reason Steroids Not Administered: Not Applicable MEMBRANES Membranes Rupture Method: Artificial Rupture of Membranes: 01/08/2018 17:59 Length of Rupture (hr): 3.90 Amniotic Fluid Color: Clear Amniotic Fluid Amount: Scant Amniotic Fluid Odor: Normal STAGES OF LABOR Stage 1 hr: 6 Stage 1 min: 56 Stage 2 hr: 0 Stage 2 min: 19 Stage 3 hr: 0 Stage 3 min: 4 Total Time in Labor hr: 7 Total Time in Labor min: 19 VAGINAL DELIVERY Episiotomy: None Laceration #1: None Laceration Extension #1: N/A Laceration #2: None Laceration #3: None Laceration Repair: Not Applicable Sponge Count Correct: N/A Sharps Count Correct: N/A CSECTION DELIVERY CSection Incision: N/A BABY A INFORMATION Delivery Date/Time: 01/08/2018 21:53 Infant Delivery Date/Time: 01/08/2018 21:53 Method of Delivery: Vaginal Born in Route : No : N/A Forceps: N/A Vacuum Extraction: N/A Shoulder Dystocia : No PRESENTATION/POSITION BABY A Presentation: Cephalic Presentation: Cephalic Presentation: Cephalic Cephalic Presentation: Vertex Breech Presentation: N/A PLACENTA INFORMATION BABY A Placenta Delivery Time : 01/08/2018 21:57 Placenta Method of Delivery: Spontaneous Placenta Status: Delivered SCORES BABY A Heart Rate 1 min: >100 bpm Resp Effort 1 min: Good Cry Reflex Irritability 1 min: Cough or Sneeze or Pulls Away Muscle Tone 1 min: Active Motion Color 1 min: Body [place], Extremities Blue Resuscitation Effort 1 min: Tactile Stimulation SCORE 1 MIN: 9 Heart Rate 5 min: >100 bpm Resp Effort 5 min: Good Cry Reflex Irritability 5 min: Cough or Sneeze or Pulls Away Muscle Tone 5 min: Active Motion Color 5 min: Body [place], Extremities Blue Resuscitation Effort 5 min: Tactile Stimulation SCORE 5 MIN: 9 INFANT INFORMATION BABY A Gestational Age at Delivery: 41.5 Gestational Status: Late Term- 41- 41.6 Weeks Outcome : Liveborn Condition : Stable Infant Sex: Female Infant Sex: Female IDENTIFICATION BABY A Infant Verification Date/Time: 01/08/2018 22:18 ID Band Number: [id number] Mother's Name Verified: Yes RN Verifying : B Montoya, RN Additional Verifying Personnel: D Jailene, US/SELF SEALING FUEL TANK REPAIRER WEIGHT/LENGTH BABY A Infant Birthweight (gm): 3440 Infant Weight (lb): 7 Weight (oz): 9 Infant Length (in): 20.50 Length (cm): 52.07 CORD INFORMATION BABY A No. Cord Vessels: 3 Nuchal Cord : N/A Cord Blood Taken: Yes-For Eval (Mom's Blood Type - or O+) Cord Blood Taken: Yes-For Eval (Mom's Blood Type - or O+) Suction: None ASSESSMENT BABY A Infant Complications: Other Infant Complications- Other: Terminal mec Physical Findings at Delivery: Molding of the Head Respirations: Appears Normal Skin to Skin: Yes Brick Washer/ALS Called : No Infant Care By: MARJ Pinzon Transferred To: Remains with Mother SIGNATURES Assignment: Cari Gonzalez MD Signature: with User ID: [email or web address] : with User ID: [email or web address] : I was personally available for consultation and serving as supervising physician for the MLP.
== END 2018-01-10 13:37 | disposition home or self-care (01) | DRG 775 ==
LOC: LC 12:45 → LR 14:58 → 2S 01-09 00:15 → UNDODISIN 01-10 10:36
PROVIDERS: ADMIT Student in an Organized Health Care Education/Training Program; ATTEND Student in an Organized Health Care Education/Training Program
PROC: 10E0XZZ Delivery of Products of Conception, External Approach (ICD-10-PCS; principal; 2018-01-08)
PROC: 4A1HXCZ Monitoring of Products of Conception, Cardiac Rate, External Approach (ICD-10-PCS; 2018-01-08)
PROC: 0U7C7ZZ Dilation of Cervix, Via Natural or Artificial Opening (ICD-10-PCS; 2018-01-08)
DX: O48.0 Post-term pregnancy (principal); O77.0 Labor and delivery complicated by meconium in amniotic fluid; Z37.0 Single live birth; Z3A.41 41 weeks gestation of pregnancy; Z88.6 Allergy status to analgesic agent
CPT/HCPCS: 36415; 80307; 81001; 85025; 85027; 86592; 86850; 86900; 86901; 87081; J2405; J2590; J3010; J3490

== ENCOUNTER 2018-01-15 20:56 | Emergency (ER) | payer MEDICAID ==
[2018-01-15] MEDS ORDERED: PREDNISONE 20 MG TABLET PO ONE (23:11)
--- NOTE | 2018-01-15 23:20 | ER Document Report ---
HPI - HPI Patient complains to provider of: Skin rash Onset: Last week Onset/Duration: Worse Quality of pain: No pain Pain Level: Denies Context: Patient complains of pruritic skin rash that she noticed developed right after the delivery of her child 1 week ago. Patient states the rash started to the abdomen and has since spread to her extremities and low back area. Patient denies any new foods, medications or detergents. Patient tried topical steroids [id number], topical Benadryl as well as Zyrtec without any improvement of her symptoms. Patient states she took oral Benadryl this evening as well without improvement. Pt states she did see her [employer] provider today for this complaint. Patient states she was advised to take Zyrtec. Associated Symptoms: Other - Skin rash. denies: Fever, Headache Exacerbated by: Denies Relieved by: Denies Similar symptoms previously: No Recently seen / treated by doctor: Yes - ROS ROS below otherwise negative: Yes Systems Reviewed and Negative: Yes All other systems reviewed and negative - CONSTITUTIONAL Constitutional: DENIES: Fever, Chills - NEURO Neurology: DENIES: Headache - REPRODUCTIVE LMP: na - DERM Skin Color: Normal Skin Problems: Rash Past Medical History - General Information source: Patient - Social History Smoking Status: Never Smoker Chew tobacco use (# tins/day): No Frequency of alcohol use: None Drug Abuse: None Occupation: none Lives with: Family Family History: Reviewed & Not Pertinent Patient has suicidal ideation: No Patient has homicidal ideation: No - Medical History Medical History: Negative Renal/ Medical History: Denies: Hx Peritoneal Dialysis Past Surgical History: Reports: Hx Oral Surgery - wisdom teeth extraction - Immunizations Hx Diphtheria, Pertussis, Tetanus Vaccination: Yes - unknown Vertical Provider Document - CONSTITUTIONAL Agree With Documented VS: Yes Exam Limitations: No Limitations General Appearance: WD/WN, No Apparent Distress - INFECTION CONTROL TRAVEL OUTSIDE OF THE [place] IN LAST 30 DAYS: No - HEENT HEENT: Atraumatic, Normal ENT Exam, Normocephalic - NECK Neck: Normal Inspection, Supple. negative: Lymphadenopathy-Left, Lymphadenopathy-Right - RESPIRATORY Respiratory: Breath Sounds Normal, No Respiratory Distress - CARDIOVASCULAR Cardiovascular: Regular Rate, Regular Rhythm, No Murmur - GI/ABDOMEN Gastrointestinal: Abdomen Soft - BACK Back: Normal Inspection - MUSCULOSKELETAL/EXTREMETIES Musculoskeletal/Extremeties: MAEW, FROM - NEURO Level of Consciousness: Awake, Alert, Appropriate Motor/Sensory: No Motor Deficit - DERM Integumentary: Warm, Dry, Rash - Patient with pruritic erythematous papules to abdomen extremities and lower back, patient does have papular lesions within the stria of her abdomen Course - Re-evaluation Re-evalutation: 01/15/18 23:18 Patient presents with symptoms concerning for pupp, discussed treatment options. Patient has attempted to use Benadryl as well as topical steroids without improvement at home. Discussed treatment with oral steroids and timing of breast-feeding to minimize exposure to infant. - Vital Signs Vital signs: Temp Pulse Resp BP Pulse Ox 97.8 F 59 L 16 117/82 96 01/15/18 21:03 01/15/18 21:03 01/15/18 21:03 01/15/18 21:03 01/15/18 21:03 Discharge - Discharge Clinical Impression: PUPP (pruritic urticarial papules and plaques of ) Condition: Stable Disposition: HOME, SELF-CARE Instructions: Steroid Medication Additional Instructions: Return immediately for any new or worsening symptoms Followup with your primary care provider, call tomorrow to make a followup appointment Prescriptions: Prednisone [Deltasone 10 mg Tablet] 10 mg PO ASDIR PRN #21 tablet PRN Reason: Referrals: [facility] [Provider Group] - Follow up as needed
[2018-01-15 23:46] VITALS: BP 121/74
== END 2018-01-15 23:45 | disposition home or self-care (01) ==
LOC: ER 20:56
DX: O26.86 Pruritic urticarial papules and plaques of pregnancy (PUPPP) (principal)
CPT/HCPCS: 99282; J7512

== ENCOUNTER 2018-12-04 22:15 | Emergency (ER) | payer SELFPAY ==
[2018-12-04 22:38] VITALS: BP 119/76
--- NOTE | 2018-12-05 01:10 | ER Document Report ---
HPI - HPI Time Seen by Provider: 12/04/18 23:47 Pain Level: 3 Context: Patient is a 33-year-old female who presents to the emergency department with a chief complaint of a sore throat. Her sore throat started yesterday. Her pain is mainly on the left side of her throat along with some ear pain. She states that she feels that her sore throat t feels the same as when she was hospitalized in 2011. She was seen by an ENT doctor at that time and was admitted at another hospital for adenoiditis and was given IV antibiotics. She states that she does not want to have her symptoms go too far, therefore she presented to the emergency department. She denies any fever, nausea, difficulty breathing, or vomiting. - ROS Systems Reviewed and Negative: Yes All other systems reviewed and negative - CONSTITUTIONAL Constitutional: DENIES: Fever, Chills - EENT EENT: REPORTS: Sore Throat, Ear Pain. DENIES: Nasal Drainage-Clear, Nasal Drainage-Purulent - NEURO Neurology: DENIES: Headache - RESPIRATORY Respiratory: DENIES: Trouble Breathing, Coughing - GASTROINTESTINAL Gastrointestinal: DENIES: Nausea, Patient vomiting - REPRODUCTIVE Reproductive: DENIES: : - DERM Skin Color: Normal, [place] Past Medical History - Social History Smoking Status: Unknown if Ever Smoked Frequency of alcohol use: Rare Drug Abuse: None Family History: Reviewed & Not Pertinent Patient has suicidal ideation: No Patient has homicidal ideation: No Renal/ Medical History: Denies: Hx Peritoneal Dialysis Past Surgical History: Reports: Hx Oral Surgery - wisdom teeth extraction - Immunizations Hx Diphtheria, Pertussis, Tetanus Vaccination: Yes - unknown Vertical Provider Document - CONSTITUTIONAL Agree With Documented VS: Yes Exam Limitations: No Limitations General Appearance: No Apparent Distress - INFECTION CONTROL TRAVEL OUTSIDE OF THE [place] IN LAST 30 DAYS: No - HEENT HEENT: Atraumatic, Normocephalic, PERRLA, Pharyngeal Exudate, Pharyngeal Tenderness, Pharyngeal Erythema. negative: Tympanic Membrane Red, Tympanic Membrane Bulging - NECK Neck: Supple, Lymphadenopathy-Left - RESPIRATORY Respiratory: Breath Sounds Normal, No Respiratory Distress - CARDIOVASCULAR Cardiovascular: Regular Rate, Regular Rhythm Pulses: Normal: Radial - MUSCULOSKELETAL/EXTREMETIES Musculoskeletal/Extremeties: FROM - NEURO Level of Consciousness: Awake, Alert, Appropriate Motor/Sensory: No Motor Deficit - DERM Integumentary: Warm, Dry Course - Re-evaluation Re-evalutation: 12/05/18 01:30 Patient's rapid strep test is negative, but due to her history of adenoiditis and being admitted for that issue, she will be started on antibiotics. A throat culture has been sent. I do not suspect a peritonsillar abscess, as her uvula is midline. I do not suspect she has Simón's angina, or any life-threatening etiology at this time. Verbal discharge instructions were given to the patient. They verbalized understanding. They are stable for discharge. - Vital Signs Vital signs: Temp Pulse Resp BP Pulse Ox 98.5 F 77 18 119/76 97 12/04/18 22:36 12/04/18 22:36 12/04/18 22:36 12/04/18 22:36 12/04/18 22:36 Discharge - Discharge Clinical Impression: Sore throat Condition: Stable Disposition: HOME, SELF-CARE Instructions: Sore Throat ([facility]) Additional Instructions: You were seen today in the emergency department for a sore throat. You have been given antibiotics to help with your sore throat. A culture has been sent to check for a strep infection. Take Motrin 600 mg and Tylenol 1000 mg every 6 hours as needed for your pain. Please follow-up within ear nose and throat doctor in regards to this visit. A referral has been put in to help you with insurance. If you are not able to swallow, have difficulty breathing, or have any symptoms that are worrisome to you, please return to the emergency department. Prescriptions: Amoxicillin Trihydrate [Amoxil 875 mg Tablet] 1 tab PO BID #20 tablet
[2018-12-05] MEDS ORDERED: IBUPROFEN 600 MG TABLET PO ONE (01:23)
[2018-12-05] MEDS ORDERED: AMOXICILLIN TRIHYDRATE 500 MG CAPSULE PO ONE (01:23)
[2018-12-05] MEDS ORDERED: ACETAMINOPHEN 325 MG TABLET PO ONE (01:23)
== END 2018-12-05 02:29 | disposition home or self-care (01) ==
LOC: ER 22:15
DX: J02.9 Acute pharyngitis, unspecified (principal); H92.09 Otalgia, unspecified ear
CPT/HCPCS: 87070; 87880; 99283

== ENCOUNTER 2019-02-22 20:57 | Emergency (ER) | payer SELFPAY ==
[2019-02-22 21:07] VITALS: BP 106/69
--- NOTE | 2019-02-23 00:37 | ER Document Report ---
ED General - General Chief Complaint: Skin Problem Stated Complaint: PAINFUL LUMP ON TOE Time Seen by Provider: 02/23/19 00:25 Mode of Arrival: Ambulatory Information source: Patient TRAVEL OUTSIDE OF THE [place] IN LAST 30 DAYS: No - HPI Patient complains to provider of: Left foot toe growth Onset: Other - About a month Onset/Duration: Gradual, Persistent Severity: Moderate Pain Level: 3 Associated symptoms: None Exacerbated by: Movement, Walking Similar symptoms previously: No Recently seen / treated by doctor: No Notes: 33-year-old -[place] female coming in today with a growth on the lateral aspect of her left fourth toe. Getting worse over a month. No redness or swelling or drainage. - Related Data Allergies/Adverse Reactions: codeine [Codeine] Adverse Reaction (Intermediate, Verified 01/09/18 00:21) Hallucinations hydrocodone [Hydrocodone] Adverse Reaction (Verified 01/09/18 00:21) Hallucinations Past Medical History - General Information source: Patient - Social History Smoking Status: Never Smoker Family History: Reviewed & Not Pertinent Renal/ Medical History: Denies: Hx Peritoneal Dialysis Past Surgical History: Reports: Hx Oral Surgery - wisdom teeth extraction - Immunizations Hx Diphtheria, Pertussis, Tetanus Vaccination: Yes - unknown Review of Systems - Review of Systems Notes: Constitutional: No fevers. No chills. EENT: No eye redness. No eye pain. No ear pain. No sore throat. Cardiovascular: No chest pain. No palpitations. Respiratory: No cough. No shortness of breath. No respiratory distress. Gastrointestinal: No abdominal pain. No nausea, vomiting, or diarrhea. Genitourinary: Atraumatic. No lesions. No pain. No discharge. Musculoskeletal: Positive for pain left foot Skin: No rash or lesions. Lymphatic: No swollen lymph nodes. Neurologic: No headache. No syncope. Psychiatric: No suicidal or homicidal ideation. Physical Exam - Vital signs Vitals: Temp Pulse Resp BP Pulse Ox 98.7 F 76 20 106/69 97 02/22/19 21:06 02/22/19 21:06 02/22/19 21:06 02/22/19 21:06 02/22/19 21:06 - Notes Notes: General: Well-developed, well-nourished. In no acute distress. Non-toxic appearing. Cardiac: Well-perfused. Regular rate and rhythm. No murmurs, rubs, or gallops. Pulmonary: No respiratory distress. No cyanosis. Bilateral lung fiels are clear to auscultation. Abdominal: Non-distended. Non-rigid. Bowels sounds are present in all four quadrants. No guarding or rebound. HEENT: Head is atraumatic. Conjunctivae not reddened. No tearing. PERRL. EOMI. Orbits atraumatic. No periorbital swelling or erythema. Oropharynx is without erythema, swelling, or exudates. Neck: Supple. No adenopathy. No meningismus. Dermatologic: Warm with good turgor. No rash. Atraumatic. Chest: Atraumatic. No chest wall tenderness to palpation. Musculoskeletal: Rounded scaling lesion which is minimally tender to palpate on the lateral edge of the left fourth toe without erythema or swelling Genitourinary: Examination deferred Neurologic: No gross neurologic deficits. Psychiatric: Normal mood. Course - Vital Signs Vital signs: Temp Pulse Resp BP Pulse Ox 98.7 F 76 20 106/69 97 02/22/19 21:06 02/22/19 21:06 02/22/19 21:06 02/22/19 21:06 02/22/19 21:06 Discharge - Discharge Clinical Impression: [place] of foot Condition: Good Disposition: HOME, SELF-CARE Additional Instructions: Please use the medication to treat the lesion. If is not better in about a week please call the orthopedic surgeon to set up an appointment to have excised. Prescriptions: Salicylic Acid [[place]-Callus Remover] 15 ml TP ASDIR PRN #1 bottle PRN Reason: Referrals: AVEL LAROSE DO [ACTIVE STAFF] - Follow up in 1 week
== END 2019-02-23 00:49 | disposition home or self-care (01) ==
LOC: ER 20:57
DX: L84 Corns and callosities (principal)
CPT/HCPCS: 99282

== ENCOUNTER 2019-12-23 01:37 | Emergency (ER) | payer SELFPAY ==
--- NOTE | 2019-12-23 02:47 | ER Document Report ---
HPI - HPI Time Seen by Provider: 12/23/19 02:30 Pain Level: 1 Context: Patient is a 34-year-old female that comes to the emergency department for chief complaint of left ear pain. She states the pain is been worsening for about 1 week, she states she also has reduced hearing in the same side. She states that she frequently has congestion, postnasal drip, and cannot seem to get rid of it. She does not take a daily antiallergy. She states that she has been flushing out her ears thinking it was a wax problem. She denies smoking, she denies any daily medications, she denies , she denies any diagnosed medical history, only reported medical history is dental surgery. - REPRODUCTIVE Reproductive: DENIES: : Past Medical History - General Information source: Patient - Social History Smoking Status: Never Smoker Frequency of alcohol use: None Drug Abuse: None Lives with: Family Family History: Reviewed & Not Pertinent Patient has suicidal ideation: No Patient has homicidal ideation: No - Medical History Medical History: Negative Renal/ Medical History: Denies: Hx Peritoneal Dialysis Past Surgical History: Reports: Hx Oral Surgery - wisdom teeth extraction - Immunizations Hx Diphtheria, Pertussis, Tetanus Vaccination: Yes - unknown Vertical Provider Document - CONSTITUTIONAL General Appearance: WD/WN, No Apparent Distress - INFECTION CONTROL TRAVEL OUTSIDE OF THE [place] IN LAST 30 DAYS: No - HEENT HEENT: Atraumatic, Normocephalic. negative: Normal ENT Exam - Some mild nasal congestion, mild postnasal drip but unremarkable oropharyngeal exam otherwise. Normal uvula, patent airway. There is impressive left-sided otitis media with bulging, erythema, purulent effusion. Nontender mastoid, unremarkable ear canal, unremarkable ENT exam otherwise - NECK Neck: Other - Some mild left-sided auricular adenopathy - RESPIRATORY Respiratory: Breath Sounds Normal, No Respiratory Distress - CARDIOVASCULAR Cardiovascular: Regular Rate, Regular Rhythm - GI/ABDOMEN Gastrointestinal: Abdomen Soft, Abdomen Non-Tender - BACK Back: Normal Inspection - MUSCULOSKELETAL/EXTREMETIES Musculoskeletal/Extremeties: MAEW, FROM, Non-Tender - NEURO Level of Consciousness: Awake, Alert, Appropriate Motor/Sensory: No Motor Deficit, No Sensory Deficit - DERM Integumentary: Warm, Dry, No Rash Course - Vital Signs Vital signs: Temp Pulse Resp BP Pulse Ox 98.0 F 84 20 112/71 97 12/23/19 01:42 12/23/19 01:42 12/23/19 01:42 12/23/19 01:42 12/23/19 01:42 Discharge - Discharge Clinical Impression: Sinus congestion, Left ear pain Otitis media Qualifiers: Otitis media type: suppurative Chronicity: acute Laterality: left Recurrence: non-recurrent Spontaneous tympanic membrane rupture: without spontaneous rupture Qualified Code(s): H66.002 - Acute suppurative otitis media without spontaneous rupture of ear drum, left ear Condition: Stable Disposition: HOME, SELF-CARE Additional Instructions: Your evaluation shows left-sided otitis media (middle ear infection). Take antibiotics as prescribed to completion. You can take 600 mg of ibuprofen and 1000 mg of Tylenol every 6 hours together if needed for pain. To open the eustachian tubes I recommend the Flonase, daily antiallergy, and decongestant such as Sudafed. Follow-up with primary care for additional management. Return for any concerning symptoms including developing swelling or redness at the ear, vomiting, severe worsening pain, spiking fever, or any other concerning symptoms. Prescriptions: Cetirizine HCl [Allergy Relief] 10 mg PO DAILY #30 tablet Amoxicillin Trihydrate [Amoxil 500 mg Capsule] 1,000 mg PO BID 7 Days #28 capsule Fluticasone Propionate [Flonase Nasal [place] 50 Mcg/[place] 16 gm] 2 sprays NASL Q12 #1 inhaler Pseudoephedrine HCl [Sudafed 12 Hour] 120 mg PO Q12 PRN #14 tablet.er PRN Reason:
[2019-12-23 03:14] VITALS: BP 103/70
== END 2019-12-23 03:07 | disposition home or self-care (01) ==
LOC: ER 01:37
DX: H66.002 Acute suppurative otitis media without spontaneous rupture of ear drum, left ear (principal); R09.81 Nasal congestion; H92.02 Otalgia, left ear; R09.82 Postnasal drip; R59.0 Localized enlarged lymph nodes
CPT/HCPCS: 87070; 87880; 99283